=== PATIENT | male | born 1955 | race Caucasian/White ===

== ENCOUNTER 2018-12-11 11:35 | Emergency (ER) | payer SELFPAY ==
[~2018-12-11] VITALS: Ht 177.8 cm; Wt 118.2 kg
[~2018-12-11 11:35] MED LIST: HYDROCODONE-APA1 TAB PO; LEVAQUIN750 MG PO; MEDROL DOSE PACK4 MG PO; MUCINEX600 MG PO; PROTONIX40 MG PO
[2018-12-11 12:01] VITALS: BP 142/82; Ht 177.8 cm; Wt 118.2 kg
== END 2018-12-11 14:40 | disposition left against medical advice (07) ==
LOC: D.ER 11:35
DX: M79.643 Pain in unspecified hand (principal)

== ENCOUNTER 2019-06-03 06:55 | Day surgery (SDC) | payer MEDICARE ==
[~2019-06-03] VITALS: Ht 177.8 cm; Wt 127.9 kg
[~2019-06-03 06:55] MED LIST changes: +SOMA350 MG PO
[2019-06-03 07:17] LABS: HEMATOCRIT 44.4 % (42.0-54.0); HEMOGLOBIN 15.3 g/dL (13.5-17.5); MCHC 34.5 g/dL (31.0-37.0); MCV 81.2 fL (80.0-100.0); RBC 5.47 10x6/uL (4.20-6.10); RDW 13.6 % (11.5-14.5); WBC 8.2 10x3/uL (4.8-10.8)
[2019-06-03] MEDS ORDERED: LIPITOR20 MG PO (08:00)
[2019-06-03 08:04] VITALS: BP 144/79; Ht 177.8 cm; Wt 127.9 kg
[2019-06-03] MEDS ORDERED: ZANTAC300 MG PO (08:09)
[2019-06-03] MEDS ORDERED: ALBUTEROL SULF8.5 GM INH (08:09)
--- NOTE | 2019-06-03 09:01 | NUR ---
PT PUBIC AREA SHAVED AT THIS TIME. UPON INSPECTION PT HAS SWELLING TO [place]. PT REPORTS PAIN 3/10.
--- NOTE | 2019-06-03 12:21 | OP ---
PATIENT NAME: MARY SMITH MEDICAL RECORD: [id number] :53 [facility] AD[facility] DATE: SURGEON: MICHEAL MORA MD DATE OF OPERATION: 06/03/2019 SURGEON: Micheal Mora MD DIAGNOSES: Phimosis, balanitis xerotica obliterans. ANESTHESIA: General anesthesia by Hector Porras CRNA. PROCEDURE: Circumcision, excisional biopsy of the penile foreskin, urethral meatal dilation and Wilson catheter insertion. FINDINGS: Very extensive scarring with skin contracture. Urethral meatal stricture. BLOOD LOSS: Minimal. CLINICAL HISTORY: This is a 63-year-old male, who has recurrent groin infections as well as phimosis for the past 3 months. He cannot retract the foreskin due to the phimosis. He has been on oral antibiotics to treat this. He does not have a history of diabetes mellitus type 2. HE IS ALLERGIC TO SULFA. He was given Ancef care professional to the OR. DESCRIPTION OF PROCEDURE: The patient was given induction of general anesthesia in supine position. He was prepped and draped. The penile foreskin is so tight that we had to perform a dorsal slit. A straight clamp was used to crush the penile foreskin in the midline dorsal surface. Metzenbaum scissors were used to make the dorsal slit. We continued this way until we finally got down to the base of the penis and we were able to expose the glans penis. A 2-0 nylon suture was used to hold the glans penis in traction. It was evident that the glans penis, the urethral meatus was quite strictured. A hemostat clamp was placed into the urethral meatus and used to dilate the urethral meatus. We then inserted a 16-Latvian Wilson catheter into the bladder and inflated the balloon with 10 cc of sterile water. This allowed the urethral meatus to heal. The patient appears to have had a previous circumcision. By pulling on the 2-0 nylon suture through the glans penis, we could simulate full length erection. He does not have any redundant skin left to do a proper circumcision. However, there were some unusual areas of the scarred skin that led me to suspect that he might have squamous cell carcinoma of the penis. I made an elliptical excision of the most suspicious area and this was sent for frozen section. The frozen section came back as balanitis without any cancer. At this point, I attempted to close the dorsal slit in order to maintain penile skin length. Simple interrupted 4-0 Vicryl sutures were started from the thompson of the glans going towards the pubis and also starting from the pubis, going towards the glans penis. In the mid part was an area of extensive defect, which I could not get the immobile skin to close. I did ask Dr. Menard to come down and provide an opinion and he was of the opinion that this area could not be skin grafted. The only other alternative was to excise the most contracted area of the penile skin, which was about 1 cm in width and this band was excised using a 15-blade. The underlying dartos fascia was also removed with it. This allowed the skin to be closed with remaining 4-0 simple interrupted sutures. However, the penile skin was a bit tethered now because of this length loss. The scrotal skin will be pulled up when the patient has a full erection. A Xeroform dressing was OPERATIVE REPORT [id number] MARY SMITH applied and a small dressing with a Kerlix was also applied. The patient can remove the dressing in 2 days. Wilson catheter should stay until I see him in followup in 1-2 weeks. TRANSINT:[id number] Voice Confirmation ID: [id number] DOCUMENT ID: [id number] MICHEAL MORA MD at 1221 CC: [id number] DICTATION DATE: 06/03/19 1148 BUILDING PERFORMANCE SPECIALIST: 06/03/19 1203 [facility] [address] [place] [address]
== END 2019-06-03 13:10 | disposition home or self-care (01) ==
LOC: D.OPS 06:55 → D.PAN 09:30 → D.OPS 13:10 → D.PAN 13:15
PROVIDERS: Anesthesiology; ATTEND Urology
DX: N47.1 Phimosis (principal); N48.1 Balanitis; N48.0 Leukoplakia of penis; Q64.33 Congenital stricture of urinary meatus